=== PATIENT | male | born 2000 ===

== ENCOUNTER 2018-01-19 09:14 | Emergency (ER) | payer SELFPAY ==
[~2018-01-19] VITALS: Ht 182.9 cm; Wt 70.0 kg
[2018-01-19 09:58] VITALS: BP 117/74
== END 2018-01-19 10:35 | disposition home or self-care (01) | DRG 696 ==
LOC: EDSEX 09:14 → ED 09:14
DX: R36.9 Urethral discharge, unspecified (principal)
CPT/HCPCS: J0561; J2540